=== PATIENT | male | born 2000 | race Hispanic/Latino ===

== ENCOUNTER 2024-02-23 17:39 | Emergency (ER) | payer SELFPAY ==
[~2024-02-23] VITALS: Ht 167.6 cm; Wt 86.2 kg
[2024-02-23 18:05] LABS: BASOPHILS # (AUTO) 0.1 (0.0-0.1); BASOPHILS % 0.3 % (0.0-1.0); EOSINOPHILS # (AUTO) 0.1 (0.0-0.4); EOSINOPHILS % 0.9 % (0.0-6.0); HEMATOCRIT 44.9 % (38.2-49.6); HEMOGLOBIN 15.4 g/dL (14.0-18.0); LYMPHOCYTES # (AUTO) 2.1 (1.0-3.2); MEAN CORPUSCULAR HEMOGLOBIN 30.3 pg (28-32); MEAN CORPUSCULAR HGB CONC 34.3 g/dL (31-35); MEAN CORPUSCULAR VOLUME 88.2 fL (81-99); MONOCYTES % 13.3 % (4.4-11.3); NEUTROPHILS # (AUTO) 10.8 (2.1-6.9); PLATELET COUNT 339 x10e3/uL (140-360); RED BLOOD COUNT 5.09 x10e6/uL (4.3-5.7); RED CELL DISTRIBUTION WIDTH 12.8 % (11.7-14.4); WHITE BLOOD COUNT 15.18 x10e3/uL (4.8-10.8)
[2024-02-23] MEDS: SODIUM CHLORIDE 0.9% 1000ML 1,000 ML IV STA (18:13)
[2024-02-23] MEDS: DEXAMETHASONE SOD PHOS 10 MG/1 ML VIAL IV STA (18:14)
[2024-02-23] MEDS: KETOROLAC TROMETHAMINE 30 MG/ML VIAL IV STA (18:14)
[2024-02-23 20:16] LABS: ALBUMIN 4.1 g/dL (3.5-5.0); ALBUMIN/GLOBULIN RATIO 0.9 (0.8-2.0); ANION GAP 18.3 mmol/L (8-16); BILIRUBIN,TOTAL 1.1 mg/dL (0.2-1.2); CALCIUM 9.8 mg/dL (8.4-10.2); CREATININE, SERUM 0.91 mg/dL (0.72-1.25); POTASSIUM 3.3 mmol/L (3.5-5.1); TOTAL PROTEIN 8.5 g/dL (6.5-8.1)
[2024-02-23] MEDS ORDERED: IOPAMIDOL 370 MG/ML 100 ML INFUS..BTL INJ ONE (20:25)
[2024-02-23 20:55] VITALS: TEMP 98.7
[2024-02-23] MEDS ORDERED: PREDNISONE20 MG PO (21:24)
[2024-02-23] MEDS ORDERED: AMOX TR-K CLV1 EAC2 PO (21:24)
[2024-02-23 21:36] VITALS: PULSE 78; RESP 18; O2SAT 98
== END 2024-02-23 21:42 | disposition home or self-care (01) ==
LOC: ER 17:46
DX: J02.0 Streptococcal pharyngitis (principal); E86.0 Dehydration
CPT/HCPCS: 36415; 70491; 80053; 83518; 85025; 99284; J1100; J1885; J7030; Q9967